=== PATIENT | male | born 1970 | race Caucasian/White ===

== ENCOUNTER 2020-02-04 13:55 | Emergency (ER) | payer SELFPAY ==
[~2020-02-04] VITALS: Ht 165.1 cm; Wt 102.1 kg
[2020-02-04 14:13] VITALS: BP 206/107; Ht 165.1 cm; Wt 102.1 kg
== END 2020-02-04 15:36 | disposition home or self-care (01) ==
LOC: ED 13:55
DX: S83.207A Unspecified tear of unspecified meniscus, current injury, left knee, initial encounter (principal); M25.462 Effusion, left knee; I10 Essential (primary) hypertension; W10.8XXA Fall (on) (from) other stairs and steps, initial encounter; Y93.89 Activity, other specified; Y92.89 Other specified places as the place of occurrence of the external cause; Y99.8 Other external cause status
CPT/HCPCS: Q0092

== ENCOUNTER 2020-02-11 11:10 | Emergency (ER) | payer SELFPAY ==
[~2020-02-11] VITALS: Ht 165.1 cm; Wt 104.3 kg
[2020-02-11 11:15] VITALS: BP 179/107; Ht 165.1 cm; Wt 104.3 kg
== END 2020-02-11 11:53 | disposition home or self-care (01) ==
LOC: ED 11:10
DX: M25.562 Pain in left knee (principal); I10 Essential (primary) hypertension; Z02.79 Encounter for issue of other medical certificate